=== PATIENT | male | born 1960 | race African-American/Black ===

== ENCOUNTER 2017-03-26 15:41 | Emergency (ER) | payer SELFPAY ==
[2017-03-26 16:00] VITALS: BP 186/112
--- NOTE | 2017-03-26 16:14 | ER Document Report ---
ED Medical Screen (RME) - General Chief Complaint: High Blood Pressure Stated Complaint: BLOOD PRESSURE ISSUE Time Seen by Provider: 03/26/17 16:13 Notes: [facility]. TRAVEL OUTSIDE OF THE [place] IN LAST 30 DAYS: No - Related Data Allergies/Adverse Reactions: No Known Allergies Allergy (Verified 03/26/17 15:42) Past Medical History - Social History Chew tobacco use (# tins/day): No Frequency of alcohol use: Occasional Drug Abuse: None - Past Medical History Cardiac Medical History: Reports: Hx Hypertension - states has white coat syndrome -- increased bp in office and hospital all the time-states not on any medications Renal/ Medical History: Denies: Hx Peritoneal Dialysis - Immunizations Hx Diphtheria, Pertussis, Tetanus Vaccination: No Physical Exam - Vital signs Vitals: Temp Pulse Resp BP Pulse Ox 98.4 F 103 H 18 186/112 H 98 03/26/17 15:59 03/26/17 15:59 03/26/17 15:59 03/26/17 15:59 03/26/17 15:59 Course - Vital Signs Vital signs: Temp Pulse Resp BP Pulse Ox 98.4 F 103 H 18 186/112 H 98 03/26/17 15:59 03/26/17 15:59 03/26/17 15:59 03/26/17 15:59 03/26/17 15:59
[2017-03-26 16:47] LABS: ABSOLUTE BASOPHILS # (AUTO) 0.1 10^3/uL (0.0-0.2); ABSOLUTE EOSINOPHILS # (AUTO) 0.2 10^3/uL (0.0-0.6); ABSOLUTE LYMPHOCYTES (AUTO) 3.3 10^3/uL (0.5-4.7); ABSOLUTE MONOCYTES (AUTO) 0.8 10^3/uL (0.1-1.4); ABSOLUTE NEUT (AUTO) 5.7 10^3/uL (1.7-8.2); BASOPHILS % (AUTO) 0.9 % (0-2); EOSINOPHILS % (AUTO) 1.6 % (0-6); HEMATOCRIT 45.5 % (37.9-51.0); HEMOGLOBIN 15.7 g/dL (13.5-17.0); HGB HCT DIFFERENCE 1.6; LYMPHOCYTES % (AUTO) 32.8 % (13-45); MEAN CORPUSCULAR HEMOGLOBIN 31.4 pg (27.0-33.4); MEAN CORPUSCULAR HGB CONC 34.6 g/dL (32.0-36.0); MEAN CORPUSCULAR VOLUME 91 fl (80-97); MONOCYTES % (AUTO) 7.6 % (3-13); RED BLOOD COUNT 5.01 10^6/uL (4.35-5.55); SEGMENTED NEUTROPHILS % (AUTO) 57.1 % (42-78)
[2017-03-26 16:57] LABS: ALANINE AMINOTRANSFERASE 44 U/L (21-72); ALBUMIN 4.4 g/dL (3.5-5.0); ALKALINE PHOSPHATASE 100 U/L (38-126); ANION GAP 13 (5-19); ASPARTATE AMINO TRANSFERASE 31 U/L (17-59); BILIRUBIN,DIRECT 0.4 mg/dL (0.0-0.4); BILIRUBIN,TOTAL 0.7 mg/dL (0.2-1.3); BLOOD UREA NITROGEN 12 mg/dL (7-20); CALCIUM 9.7 mg/dL (8.4-10.2); CARBON DIOXIDE 28 mmol/L (22-30); CHLORIDE 103 mmol/L (98-107); CREATININE RESULT 0.79 mg/dL (0.52-1.25); GLUCOSE 93 mg/dL (75-110); POTASSIUM 4.7 mmol/L (3.6-5.0); TOTAL PROTEIN 7.4 g/dL (6.3-8.2)
--- NOTE | 2017-03-26 17:19 | RADIOLOGY REPORT (SQ) ---
EXAM DESCRIPTION: VENOUS UNILATERAL LOWER COMPLETED DATE/TIME: 03/26/2017 5:05 pm REASON FOR STUDY: right leg swelling/pain COMPARISON: None. TECHNIQUE: Dynamic and static youssef scale and color images acquired of the right leg venous system. S elected spectral images acquired with additional compression and augmentation maneuvers. The contrala teral common femoral vein and saphenofemoral junction were also imaged. Images stored on PACS. LIMITATIONS: None. FINDINGS: COMMON FEMORAL: Normal phasicity, compression and augmentation. No visualized echogenic ma terial on youssef scale. No defects on color images. FEMORAL: Normal compression and augmentation. No visualized echogenic material on youssef scale. No defe cts on color images. POPLITEAL: Normal compression, augmentation. No visualized echogenic material on youssef scale. No defec ts on color images. CALF VESSELS: Normal compression, augmentation. No visualized echogenic material on youssef scale. No de fects on color images. GSV and SSV: Normal compression, augmentation. No visualized echogenic material on youssef scale. No def ects on color images. ANY DEEP VENOUS INSUFFICIENCY: Not evaluated. ANY EVIDENCE OF POPLITEAL CYST: No. OTHER: No other significant finding. CONTRALATERAL COMMON FEMORAL VEIN AND SAPHENOFEMORAL JUNCTION: Normal phasicity, compression and augmentation. No visualized echogenic material on youssef scale. No de fects on color images. IMPRESSION: NO EVIDENCE OF DVT OR SVT IN THE RIGHT LEG. TECHNICAL DOCUMENTATION: JOB ID: [id number] [employer]- All Rights Reserved
--- NOTE | 2017-03-26 18:55 | ER Document Report ---
ED General - General Chief Complaint: High Blood Pressure Stated Complaint: BLOOD PRESSURE ISSUE Time Seen by Provider: 03/26/17 16:13 Notes: Patient is a 56-year-old male who presents from the [facility] with concerns bilateral lower extremity swelling worse on the right. Patient reports that this is been present for the past 2 weeks. Denies any pain to the area. States he has been trying to elevate legs and that this does not seem to improve the swelling. He has had similar symptoms in the past but is uncertain of the etiology. He has no prior history of DVT. He does not take any form of anticoagulation. He notes that he is also had hypertension while in the office today and at the MI requested that this be evaluated. He denies any chest pain, shortness of breath , headache, neck pain or altered mental status. He states he has been taking all medications as directed. TRAVEL OUTSIDE OF THE [place] IN LAST 30 DAYS: No - Related Data Allergies/Adverse Reactions: No Known Allergies Allergy (Verified 03/26/17 15:42) Past Medical History - General Information source: Patient - Social History Smoking Status: Current Every Day Smoker Chew tobacco use (# tins/day): No Frequency of alcohol use: Occasional Drug Abuse: None Lives with: Family Family History: Reviewed & Not Pertinent Patient has suicidal ideation: No Patient has homicidal ideation: No - Past Medical History Cardiac Medical History: Reports: Hx Hypertension - states has white coat syndrome -- increased bp in office and hospital all the time-states not on any medications Renal/ Medical History: Denies: Hx Peritoneal Dialysis - Immunizations Hx Diphtheria, Pertussis, Tetanus Vaccination: No Review of Systems - Review of Systems Notes: Constitutional: Negative for fever. HENT: Negative for sore throat. Eyes: Negative for visual changes. Cardiovascular: Negative for chest pain. Respiratory: Negative for shortness of breath. Gastrointestinal: Negative for abdominal pain, vomiting or diarrhea. Genitourinary: Negative for dysuria. Musculoskeletal: Positive for bilateral lower extremity edema Skin: Negative for rash. Neurological: Negative for headaches, weakness or numbness. 10 point ROS negative except as marked above and in HPI. Physical Exam - Vital signs Vitals: Temp Pulse Resp BP Pulse Ox 98.4 F 103 H 18 186/112 H 98 03/26/17 15:59 03/26/17 15:59 03/26/17 15:59 03/26/17 15:59 03/26/17 15:59 Interpretation: Tachycardic Notes: PHYSICAL EXAMINATION: GENERAL: Well-appearing, well-nourished and in no acute distress. HEAD: Atraumatic, normocephalic. EYES: Pupils equal round and reactive to light, extraocular movements intact, sclera anicteric, conjunctiva are normal. ENT: nares patent, oropharynx clear without exudates. Moist mucous membranes. NECK: Normal range of motion, supple without lymphadenopathy LUNGS: Breath sounds clear to auscultation bilaterally and equal. No wheezes rales or rhonchi. HEART: Regular rate and rhythm without murmurs ABDOMEN: Soft, nontender, normoactive bowel sounds. No guarding, no rebound. No masses appreciated. EXTREMITIES: Bilateral lower extremity edema worse on the right. A proximally 1 + in the left 2+ in the right NEUROLOGICAL: No focal neurological deficits. Moves all extremities spontaneously and on command. PSYCH: Normal mood, normal affect. SKIN: Warm, Dry, normal turgor, no rashes or lesions noted. Course - Re-evaluation Re-evalutation: 03/26/17 18:54 Presentation of asymptomatic hypertension. Patient denies any symptoms concerning for SAH, dissection, SD, or encephalopaty. Alert, oriented, and denies any symptoms at time of assessment. Normal neuro exam. Per [facility] policy guidelines, will therefore not obtain any labs or EKG at this time and will not initiate new BP treatment. I have discussed critical importance of follow up with PCP within 1 week and increased risk of devastating stroke, heart attack, respiratory distress, and other life threatening complications if blood pressure is not reduced appropriately. Diet and exercise habits also discussed. Patient was also complaining about bilateral lower extremity swelling worse in the right that is been present for at least the past 1 month. A venous Doppler study was performed and does not demonstrate any evidence of a DVT. At this time will discharge with return precautions and follow-up recommendations. Verbal discharge instructions given a the bedside and opportunity for questions given. Medication warnings reviewed. Patient is in agreement with this plan and has verbalized understanding of return precautions and the need for primary care follow-up in the next 24-72 hours. - Vital Signs Vital signs: Temp Pulse Resp BP Pulse Ox 98.4 F 103 H 18 186/112 H 98 03/26/17 15:59 03/26/17 15:59 03/26/17 15:59 03/26/17 15:59 03/26/17 15:59 - Laboratory Result Diagrams: 03/26/17 16:28 03/26/17 16:28 - Diagnostic Test Radiology reviewed: Reports reviewed Discharge - Discharge Clinical Impression: Right leg swelling, Essential hypertension Condition: Good Disposition: HOME, SELF-CARE Additional Instructions: You were seen today for blood pressure that was high. This is a long-term risk factor for multiple medical problems including heart attack and stroke. However, the blood pressure in of itself will not cause you to have an acute stroke or heart attack over the course of just several days or weeks. You need to have a gradual reduction of your blood pressure back to normal levels over the next several months in conjunction with your primary care physician. Return if you develop headache, weakness, numbness, chest pain, pass out, or have any other symptoms that are concerning to you. You also had an ultrasound done of your right leg due to concerns of a possible clot. This is normal and does not show any evidence of a clot.
== END 2017-03-26 19:39 | disposition home or self-care (01) ==
LOC: ER 15:41
DX: I10 Essential (primary) hypertension (principal); R60.0 Localized edema; R00.0 Tachycardia, unspecified; F17.200 Nicotine dependence, unspecified, uncomplicated
CPT/HCPCS: 36415; 80053; 85025; 93971; 99284

== ENCOUNTER 2018-01-14 09:05 | Emergency (ER) | payer OTHER ==
[2018-01-14 09:16] VITALS: BP 174/89
[2018-01-14] MEDS ORDERED: MELOXICAM 15 MG TABLET PO ONE (09:57)
--- NOTE | 2018-01-14 10:01 | ER Document Report ---
ED Extremity Problem, Upper - General Chief Complaint: Arm Pain Stated Complaint: ARM SWELLING Time Seen by Provider: 01/14/18 09:48 Notes: 57-year-old male to emergency department chief complaint of right hand and wrist swelling and arm swelling with pain. Began approximately week and half ago. Continues to get worse. Patient does have a history of gout but has never had any major swelling or gout in the wrist or arm. Denies any trauma. Woke up one day and was having some pain in the fingers and has migrated now to all the way up to the elbow on the right. No shortness of breath. No fever. No tachycardia. [facility] for further evaluation and treatment TRAVEL OUTSIDE OF THE [place] IN LAST 30 DAYS: No - HPI Patient complains to provider of: Pain, Swelling, Right, Forearm, Hand, Wrist Onset: Last week Where: Home - Related Data Allergies/Adverse Reactions: No Known Allergies Allergy (Verified 01/14/18 09:06) Past Medical History - General Information source: Patient - Social History Smoking Status: Unknown if Ever Smoked Cigarette use (# per day): No Frequency of alcohol use: None Drug Abuse: None Lives with: Family Family History: Reviewed & Not Pertinent Patient has suicidal ideation: No Patient has homicidal ideation: No - Past Medical History Cardiac Medical History: Reports: Hx Hypertension - states has white coat syndrome -- increased bp in office and hospital all the time-states not on any medications Renal/ Medical History: Denies: Hx Peritoneal Dialysis - Immunizations Hx Diphtheria, Pertussis, Tetanus Vaccination: No Review of Systems - Review of Systems Notes: Constitutional: denies: Chills, Diaphoresis, Fever, Malaise, Weakness EENT: denies: Eye discharge, Blurred vision, Tearing, Double vision, Nose congestion, Nose discharge, Throat swelling, Mouth pain Cardiovascular: denies: Palpitations, Heart racing, Orthopnea, Dyspnea, Chest pain Respiratory: denies: Cough, Hurts to breathe, Wheezing, Shortness of breath Gastrointestinal: denies: Abdominal pain, Diarrhea, Nausea, Vomiting, Black stools, bright red blood in stool Genitourinary: denies: Burning, Dysuria, Discharge, Frequency, Flank pain, Hematuria Musculoskeletal: Swelling and edema to the right hand, right wrist, right forearm with pain with movement. Hematologic/Lymphatic: denies: Anemia, Easy bleeding, Easy bruising, Blood clots Neurological/Psychological: denies: Confusion, Dementia, Depression, Loss of consciousness Skin: No lesions, no masses, no skin breakdown, no abscesses Physical Exam - Vital signs Vitals: Temp Pulse Resp BP Pulse Ox 98.3 F 98 16 174/89 H 96 01/14/18 09:11 01/14/18 09:11 01/14/18 09:11 01/14/18 09:11 01/14/18 09:11 Interpretation: Normal - General General appearance: Appears well, Alert - HEENT Head: Normocephalic, Atraumatic Eyes: Normal Pupils: PERRL - Respiratory Respiratory status: No respiratory distress Chest status: Nontender Breath sounds: Normal Chest palpation: Normal - Cardiovascular Rhythm: Regular Heart sounds: Normal auscultation Murmur: No - Abdominal Inspection: Normal Distension: No distension Bowel sounds: Normal Tenderness: Nontender Organomegaly: No organomegaly - Extremities General upper extremity: Other - The right upper extremity demonstrates significant edema and swelling with tenderness to palpation in the hand and wrist as well as tenderness in the forearm with pain with range of motion at the elbow and at the wrist. Left upper extremity unremarkable. Pulses are present in the bilateral upper extremities at the radius and ulna. Sensation intact bilaterally General lower extremity: Normal inspection, Nontender, Tender, Edema, Normal color, Normal ROM, Normal strength, Normal temperature, Normal weight bearing, Tsering's sign, Other - Neurological Neuro grossly intact: Yes Cognition: Normal Orientation: AAOx4 Zachary Coma Scale Eye Opening: Spontaneous Zachary Coma Scale Verbal: Oriented Meg Coma Scale Motor: Obeys Commands Meg Coma Scale Total: 15 Speech: Normal Motor strength normal: LUE, RUE, LLE, RLE Sensory: Normal - Skin Skin Temperature: Warm Skin Moisture: Dry Skin Color: Normal Course - Re-evaluation Re-evalutation: 01/14/18 10:00 We will ultrasound the right upper extremity to rule out DVT. Will get x-ray at the wrist which should help to show any distal dysfunction potential fracture or occult fractures. Will get basic labs as well including uric acid and reassess. Will order a dose of meloxicam while here in the emergency department. 01/14/18 12:47 No evidence of DVT on ultrasound. Labs are fairly unremarkable with a slightly elevated uric acid. Patient more than likely has gout. He did receive some meloxicam here. Will prescribe him some indomethacin. Will recommend close outpatient follow-up. Return if symptoms are getting worse. 01/14/18 12:48 Ultrasound negative for DVT. - Vital Signs Vital signs: Temp Pulse Resp BP Pulse Ox 98.3 F 98 16 174/89 H 96 01/14/18 09:11 01/14/18 09:11 01/14/18 09:11 01/14/18 09:11 01/14/18 09:11 - Laboratory Result Diagrams: 01/14/18 10:13 01/14/18 10:13 Laboratory results interpreted by me: 01/14/18 01/14/18 10:13 10:13 RBC 4.34 L Hgb 13.4 L Glucose 128 H Uric Acid 9.0 H Discharge - Discharge Clinical Impression: Arthritis, gouty Condition: Good Disposition: HOME, SELF-CARE Instructions: Gout (OM), Gout Diet (OM) Additional Instructions: Try to keep arm elevated. You may use ice packs. It is important that you begin the medication as prescribed. Usually symptoms will resolve within the first 24-48 hours of medication treatment. In the event that symptoms are getting worse or no better please return for repeat evaluation. Please follow-up with your regular doctor soon as possible for repeat evaluation Prescriptions: Indomethacin 50 mg PO TID 7 Days #21 capsule Ranitidine HCl [Zantac] 150 mg PO BID 7 Days #14 tablet Referrals: STANLEY CUENCA PA [Primary Care Provider] - Follow up as needed
--- NOTE | 2018-01-14 10:22 | RADIOLOGY REPORT (SQ) ---
EXAM DESCRIPTION: WRIST RIGHT 2 VIEWS COMPLETED DATE/TIME: 01/14/2018 10:10 am REASON FOR STUDY: pain and swelling COMPARISON: None. NUMBER OF VIEWS: Three views. TECHNIQUE: AP, lateral, and oblique radiographic images acquired of the right wrist. LIMITATIONS: None. FINDINGS: MINERALIZATION: Normal. BONES: No acute fracture or dislocation. No worrisome bone lesions. Normal alignment. SOFT TISSUES: No soft tissue swelling. No foreign body. OTHER: No other significant finding. IMPRESSION: NEGATIVE STUDY OF THE RIGHT WRIST. NO RADIOGRAPHIC EVIDENCE OF ACUTE INJURY. TECHNICAL DOCUMENTATION: JOB ID: [id number] [employer]- All Rights Reserved Reading location - IP/workstation name: [email or web address]
[2018-01-14 10:25] LABS: ABSOLUTE BASOPHILS # (AUTO) 0.1 10^3/uL (0.0-0.2); ABSOLUTE EOSINOPHILS # (AUTO) 0.3 10^3/uL (0.0-0.6); ABSOLUTE LYMPHOCYTES (AUTO) 2.4 10^3/uL (0.5-4.7); ABSOLUTE MONOCYTES (AUTO) 0.6 10^3/uL (0.1-1.4); ABSOLUTE NEUT (AUTO) 5.4 10^3/uL (1.7-8.2); BASOPHILS % (AUTO) 1.1 % (0-2); EOSINOPHILS % (AUTO) 2.9 % (0-6); HEMOGLOBIN 13.4 g/dL (13.5-17.0); LYMPHOCYTES % (AUTO) 27.3 % (13-45); MEAN CORPUSCULAR HEMOGLOBIN 30.8 pg (27.0-33.4); MEAN CORPUSCULAR HGB CONC 34.2 g/dL (32.0-36.0); MEAN CORPUSCULAR VOLUME 90 fl (80-97); PLATELET COUNT 344 10^3/uL (150-450); RED BLOOD COUNT 4.34 10^6/uL (4.35-5.55); RED CELL DISTRIBUTION WIDTH 13.1 % (11.5-14.0); SEGMENTED NEUTROPHILS % (AUTO) 61.7 % (42-78); TOTAL CELLS COUNTED % (AUTO) 100 %; WHITE BLOOD COUNT 8.7 10^3/uL (4.0-10.5)
[2018-01-14 10:30] LABS: INTERNATIONAL RATION (INR) 0.91; PROTHROMBIN TIME 12.7 SEC (11.4-15.4)
[2018-01-14 10:31] LABS: PARTIAL THROMBOPLASTIN TIME 30.8 SEC (23.5-35.8)
[2018-01-14 10:52] LABS: ALANINE AMINOTRANSFERASE 37 U/L (21-72); ALKALINE PHOSPHATASE 110 U/L (38-126); ANION GAP 7 (5-19); ASPARTATE AMINO TRANSFERASE 23 U/L (17-59); BILIRUBIN,DIRECT 0.4 mg/dL (0.0-0.4); BILIRUBIN,TOTAL 0.4 mg/dL (0.2-1.3); BLOOD UREA NITROGEN 15 mg/dL (7-20); CALCIUM 9.9 mg/dL (8.4-10.2); CARBON DIOXIDE 28 mmol/L (22-30); CHLORIDE 106 mmol/L (98-107); GLUCOSE 128 mg/dL (75-110); POTASSIUM 4.5 mmol/L (3.6-5.0); SODIUM 140.7 mmol/L (137-145); TOTAL PROTEIN 7.4 g/dL (6.3-8.2)
[2018-01-14] MEDS ORDERED: KETOROLAC TROMETHAMINE INJ/PF 30 MG/1 ML SDV IM ONE (12:50)
--- NOTE | 2018-01-14 13:15 | XCELERA REPORT ---
[address] [address] Upper Extremity Venous Evaluation Name: ROSS HUITRON Age: 57 yrs Gender: Male : 1960 Patient Status: Preadmit Patient Location: ER Study Date: 01/14/2018 11:45 AM Procedure: Unilateral duplex scan of the right upper extremity veins was performed, including responses to compression and other maneuvers. Reason For Study: rue swelling Ordering Physician: MARY KUO Performed By: HAROON Right Side Venous Evaluation Normal vessel filling wall to wall, compression and augmentation as well as Colour flow down to the forearm veins. Interpretation Summary Normal compression, patency, spontaneous and phasic flow of the right upper extremity veins. : MARY KUO > Kartik Tee
== END 2018-01-14 13:11 | disposition home or self-care (01) ==
LOC: ER 09:05
DX: M10.9 Gout, unspecified (principal)
CPT/HCPCS: 99284; 96372; 36415; 84550; 85025; 85610; 85730; 80053; 93971 ×2; 73100; J1885